=== PATIENT | female | born 1970 | race Asian ===

== ENCOUNTER 2019-03-18 10:33 | Emergency (ER) | payer OTHER ==
[~2019-03-18] VITALS: Ht 162.6 cm; Wt 90.7 kg
[2019-03-18 11:07] VITALS: BP 141/63; TEMP 98
== END 2019-03-18 11:07 | disposition home or self-care (01) ==
LOC: ED 10:33
DX: S81.811A Laceration without foreign body, right lower leg, initial encounter (principal); W26.9XXA Contact with unspecified sharp object(s), initial encounter
CPT/HCPCS: 90471; 90715; 99282